=== PATIENT | male | born 1955 | race Caucasian/White ===

== ENCOUNTER 2024-09-12 13:48 | Emergency (ER) | payer OTHER, SELFPAY ==
[2024-09-12 13:51] VITALS: BP 104/75
--- NOTE | 2024-09-12 14:41 | ED.GENMED ---
History of Present Illness
General
Chief Complaint: DVT/Possible Blood Clot
Source: patient
Exam Limitations: none
Time Seen by Provider: 09/12/24 14:09
Nursing documentation reviewed up to this point in time: agreed with
History of Present Illness
History of Present Illness:
69-year-old male with no significant past medical history presents with pain in the lower right calf that began 2 days ago. The pain was initially not debilitating, allowing the patient to limp. However, the pain worsened the following morning, and
he noticed the appearance of a visible vein with nodules, prompting concern. States the calf feels tight rather than painful at the moment. Denies chest pain or trouble breathing.
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 There were 2 past instances of similar calf pain in the same area associated with running during the summer months, which resolved with rest for 2 weeks. This episode mirrors those previous occurrences in terms of
sensation and timing, but this pain is more constant.
Past History
Past History
ED Past Medical History: None
ED Past Surgical History: None
Social History
Tobacco: Non-smoker
Alcohol: Occasional
Personal:
Living: with family
Employment: Employed
Review of Systems
Review of Systems
Allergies reviewed?: Yes
All Other Systems: ROS reviewed and negative except as documented in HPI and ROS
Musculoskeletal: Reports other (pain right calf)
Phy Exam
Physical Exam
Physical Exam:
GENERAL: No acute distress. A&Ox3.
CONSTITUTIONAL: Afebrile.
EYES: clear, conjunctivae normalgs clear.
CARDIOVASCULAR: Regular rate and rhythm, no murmurs, no rubs.
GI: Soft, nontender, normal BS
MUSCULOSKELETAL: Right lower lateral calf with mildly prominent vein with visible valves at site of discomfort. No redness, welling, warmth or significant pain.. Moves with ease. Well perfused.
SKIN: Warm, dry, pink
PSYCH: Normal mood and affect. Well kept, interactive and appropriate
NEUROLOGIC: Awake, alert and oriented. No focal neurological deficits
Course
Orders/Labs/Results
Orders:
Orders
09/12/24 13:56
US Periph Venous LOWER Ext RT Urgent
Comment:
Reason For Exam: swelling and pain
Vital Signs
Initial and Last Documented VS:
Initial Vital Signs
Temp Pulse Resp BP Pulse Ox
98.1 F 84 18 104/75 97
09/12/24 13:51 09/12/24 13:51 09/12/24 13:51 09/12/24 13:51 09/12/24 13:51
Last Documented Vital Signs
Temp Pulse Resp BP Pulse Ox
98.1 F 84 18 104/75 97
09/12/24 13:51 09/12/24 13:51 09/12/24 13:51 09/12/24 13:51 09/12/24 14:46
MDM/Problems Addressed
Differential Diagnosis Includes:
1. Superficial phlebitis
2. Deep vein thrombosis
3. Muscle strain
4. Venous insufficiency
5. Calf muscle cramps
MDM/Problems Addressed:
69-year-old male with no significant past medical history presents with pain in the lower right calf that began 2 days ago. The pain was initially not debilitating, allowing the patient to limp. However, the pain worsened the following morning, and
he noticed the appearance of a visible vein with nodules, prompting concern. States the calf feels tight rather than painful at the moment. Denies chest pain or trouble breathing.
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 There were 2 past instances of similar calf pain in the same area associated with running during the summer months, which resolved with rest for 2 weeks. This episode mirrors those previous occurrences in terms of
sensation and timing, but this pain is more constant.
IMPRESSION: Nonocclusive thrombus within the right popliteal vein and the right posterior tibial vein.
Patient given copy of report and also illustration from up-to-date showing where the clots a Rx for Eliquis sent to his pharmacy. Re.
*Pulse Oximetry
SaO2: 97
Oxygen Mode of Delivery: Room air
Patient hypoxic: not evaluated
*Critical Care Note
Total Time (30-74mins, 75-104mins- exclusive of procedures): Not Applicable
ED Attending Note
-
Portions of this chart may have been created with voice recognition software.� Occasional wrong word or��sound alike� substitutions may have occurred due to the inherent limitations of voice recognition software.
Discharge Plan
Departure
Patient Disposition: Home (Routine Discharge)
Date of Disposition: 09/12/24
Time of Disposition: 16:05
Patient with high blood pressure during this ER visit?: No
Condition: Good
Discharge Problem:
Deep vein thrombosis (DVT) of right lower extremity
Instructions: Apixaban, Deep vein thrombosis - Discharge instructions
Prescriptions:
New
Eliquis 5 mg tablet
5 mg PO BID Qty: 70 0RF
Rx Instructions:
Take 10 mg BID for 7 days then 5 mg BID until further instructed
Referrals:
UNKNOWN - PT DOES,NOT KNOW [Family Provider]
Activity Restrictions/Additional Instructions:
As we discussed, I sent a prescription to your pharmacy for the blood thinner Eliquis, start it today.
Call and make appointment with your family doctor as you will need a repeat ultrasound in 2-3 weeks.
Return here immediately for chest pain, trouble breathing or feeling sicker in any way.
You may resume your regular activity just no high-level activity such as running, exercising or lengthy car rides
Interventions
Interventions:
*Risk Screen - Suicide Last Done: 09/12/24 13:51
*General Assessment Last Done: 09/12/24 13:51
*Neglect/Abuse Screening Last Done: 09/12/24 13:51
*ED- Fall Risk Assessment Last Done: 09/12/24 16:11
*ED COVID-19 Vaccine History Last Done: 09/12/24 16:11
ED- Cardiac Assessment Last Done: 09/12/24 16:09
ED-Musculoskeletal Assessment Last Done: 09/12/24 14:01
ED- Pulmonary Assessment Last Done: 09/12/24 16:09
ED-Peripheral Vascular Assessment Last Done: 09/12/24 16:09
ED-Skin Assessment Last Done: 09/12/24 16:09
Discharge Date and Time
Print Language: MALTESE
== END 2024-09-12 16:32 | disposition home or self-care (01) ==
LOC: EMR 13:48
PROVIDERS: EMERGENCY PHYSICIAN Emergency Medicine
DX: I82.441 Acute embolism and thrombosis of right tibial vein (principal); I82.431 Acute embolism and thrombosis of right popliteal vein
CPT/HCPCS: 99284; 93971